=== PATIENT | male | born 1980 | race Hispanic/Latino ===

== ENCOUNTER 2017-05-17 20:54 | Emergency (ER) | payer MEDICAID ==
[2017-05-17] MEDS ORDERED: ZIPRASIDONE MESYLATE 20 MG/VIAL IM ONE (21:07)
[2017-05-17 21:46] LABS: BASOPHILS % (AUTO) 0.7 % (0.0-5.0); EOSINOPHILS % (AUTO) 2.4 % (0.0-8.0); HEMATOCRIT 48.9 % (42-54); LYMPHOCYTES % (AUTO) 19.5 % (21.0-51.0); MEAN CORPUSCULAR HEMOGLOBIN 32.3 pg (27.0-33.0); MEAN CORPUSCULAR HGB CONC 34.6 g/dL (32.0-36.0); MEAN CORPUSCULAR VOLUME 93.4 fL (79-99); MONOCYTES % (AUTO) 11.3 % (3.0-13.0); NEUTROPHILS % (AUTO) 66.1 % (40.0-77.0); NUCLEATED RED BLOOD CELLS 0.1 % (0.0-0.19); PLATELET COUNT (AUTO) 247 K/uL (130-400); RED BLOOD CELL COUNT(AUTO) 5.23 MIL/uL (4.50-6.20); RED CELL DISTRIBUTION WIDTH 13.3 % (11.0-15.5); WHITE BLOOD COUNT (AUTO) 14.2 K/uL (4.8-10.8)
[2017-05-17 21:58] LABS: CARBON DIOXIDE 30 mmol/L (21-32); CHLORIDE 103 mmol/L (101-111); GLOMERULAR FILTR. RATE CALC 91 mL/min (>60); GLUCOSE,RANDOM 91 mg/dL (70-105); POTASSIUM 3.9 mmol/L (3.5-5.1); SODIUM SERUM 140 mmol/L (136-145); UREA NITROGEN, BLOOD 16 mg/dL (7-18)
[2017-05-17 22:05] LABS: ALANINE AMINOTRANSFERASE 31 U/L (12-78); ALBUMIN 4.4 g/dL (3.5-5.0); ALCOHOL, BLOOD < 3 mg/dL (0-10); ASPARTATE AMINOTRANSFERASE 22 U/L (10-37); BILIRUBIN,TOTAL 0.9 mg/dL (0.2-1.0); SALICYLATE 2.9 mg/dL (2.8-20.0); TOTAL PROTEIN, SERUM 8.8 g/dL (6.0-8.3)
[2017-05-17 22:08] LABS: ACETAMINOPHEN < 1 mcg/mL (10-29)
[2017-05-17 22:14] LABS: APPEARANCE,URINE Cloudy (CLEAR); BILIRUBIN,URINE Negative (NEGATIVE); COLOR,URINE Yellow (YELLOW); GLUCOSE, URINE (UA) Negative (NEGATIVE); KETONES,URINE >=80 mg/dL (NEGATIVE); LEUKOCYTE ESTERASE ,URINE Large (NEGATIVE); NITRATE,URINE Negative (NEGATIVE); OCCULT BLOOD,URINE Large (NEGATIVE); PH,URINE 6.5 (5.0-8.0); PROTEIN,URINE Trace (NEGATIVE)
[2017-05-17 22:28] LABS: AMPHET/METH SCREEN,URINE NEGATIVE (NEGATIVE); BACTERIA,URINE Few /HPF (None Seen); BARBITURATE SCREEN, URINE NEGATIVE (NEGATIVE); BENZODIAZEPINES SCREEN,URINE POSITIVE (NEGATIVE); CANNABINOID SCREEN,URINE POSITIVE (NEGATIVE); COCAINE SCREEN,URINE POSITIVE (NEGATIVE); OPIATE SCREEN,URINE NEGATIVE (NEGATIVE); PHENCYCLIDINE SCREEN,URINE NEGATIVE (NEGATIVE); SQUAMOUS EPITHELIAL CELL,UR Moderate /LPF (0-2)
== END 2017-05-18 02:01 | disposition home or self-care (01) ==
LOC: EDH 20:54
DX: F19.10 Other psychoactive substance abuse, uncomplicated (principal); R45.851 Suicidal ideations
CPT/HCPCS: 36415; 80053; 80305; 81001; 85025; 93005; 96372; 99285; G0480 ×2; G0481; J3486

== ENCOUNTER 2018-06-04 11:56 | Emergency (ER) | payer MEDICAID, OTHER | END 2018-06-04 13:43 | disposition home or self-care (01) | LOC: EDH 11:56 | DX: F19.10 Other psychoactive substance abuse, uncomplicated (principal); Z72.0 Tobacco use | CPT/HCPCS: 71045; 74021 ==

== ENCOUNTER 2018-06-16 15:00 | Emergency (ER) | payer OTHER ==
[2018-06-16 15:46] LABS: BASOPHILS % (AUTO) 0.7 % (0.0-5.0); EOSINOPHILS % (AUTO) 2.1 % (0.0-8.0); HEMATOCRIT 46.6 % (42-54); LYMPHOCYTES % (AUTO) 15.8 % (21.0-51.0); MEAN CORPUSCULAR HEMOGLOBIN 31.1 pg (27.0-33.0); MEAN CORPUSCULAR HGB CONC 33.7 g/dL (32.0-36.0); MEAN CORPUSCULAR VOLUME 92.3 fL (79-99); MONOCYTES % (AUTO) 6.3 % (3.0-13.0); NEUTROPHILS % (AUTO) 75.1 % (40.0-77.0); PLATELET COUNT (AUTO) 208 K/uL (130-400); RED BLOOD CELL COUNT(AUTO) 5.05 MIL/uL (4.50-6.20); RED CELL DISTRIBUTION WIDTH 13.6 % (11.0-15.5); WHITE BLOOD COUNT (AUTO) 11.5 K/uL (4.8-10.8)
[2018-06-16 16:10] LABS: CREATININE 0.9 mg/dL (0.5-1.5); POTASSIUM 4.2 mmol/L (3.5-5.1)
== END 2018-06-16 16:43 | disposition home or self-care (01) ==
LOC: EDH 15:00 → EEVIPCON 15:00 → EDH 16:43
DX: R07.89 Other chest pain (principal); Z87.891 Personal history of nicotine dependence
CPT/HCPCS: 36415; 80048; 82550; 84484; 85025; 93005